=== PATIENT | female | born 2005 | race Caucasian/White ===

== ENCOUNTER 2024-07-28 14:35 | Emergency (ER) | payer BC ==
[~2024-07-28] VITALS: Ht 180.3 cm; Wt 72.7 kg
[2024-07-28 14:41] VITALS: BP 127/85; TEMP 98.2
[2024-07-28 15:15] LABS: COLLECTION METHOD CLEAN CATCH
[2024-07-28 15:23] LABS: URINE APPEARANCE CLEAR (CLEAR/HAZY); URINE BLOOD NEGATIVE (NEGATIVE); URINE COLOR ORANGE (YELLOW); URINE GLUCOSE NEGATIVE (NEGATIVE); URINE KETONE NEGATIVE (NEGATIVE); URINE NITRATE POSITIVE (NEGATIVE); URINE PROTEIN(semi-quant) NEGATIVE (NEGATIVE)
[2024-07-28 15:34] LABS: MUCOUS PRESENT (NOT PRESENT); SQUAMOUS EPITHELIAL 0-2 /hpf (0-10); URINE BACTERIA OCCASIONAL /hpf (NONE SEEN); URINE RBC NONE SEEN /hpf (0-2)
[2024-07-28] MEDS ORDERED: BACTRIM DS 8001 TAB PO (15:41)
[2024-07-28] MEDS ORDERED: Sulfamethoxazole/Trimethoprim 800-160 MG TAB PO ONE (15:45)
[2024-07-28] MEDS ORDERED: Cephalexin 500 MG CAP PO ONE (15:45)
[2024-07-28 15:52] VITALS: PULSE 78
== END 2024-07-28 15:52 | disposition home or self-care (01) ==
LOC: COL.ER 14:35
PROVIDERS: Emergency Medicine
DX: N39.0 Urinary tract infection, site not specified (principal)